=== PATIENT | male | born 1990 | race Hispanic/Latino ===

== ENCOUNTER 2022-05-31 14:30 | Emergency (ER) | payer BC ==
[2022-05-31 16:06] LABS: Hemoglobin 17.8 g/dL (14.0-18.0); Mean Corpuscular HGB CONC 33.3 g/dL (32.0-36.0); Mean Corpuscular Hemoglobin 29.6 pg (27.0-31.0); Mean Platelet Volume 7.2 fL (7.4-10.4); Platelet Count 219 thou/uL (130-400); RBC Distribution Width 12.6 % (11.5-14.5); Red Blood Cell (RBC) Count 6.02 mill/uL (4.70-6.10); White Blood Cell (WBC) Count 9.9 thou/uL (4.8-10.8)
[2022-05-31 16:24] LABS: ALT (SGPT) 46 U/L (8-55); AST (SGOT) 29 U/L (5-34); Albumin 4.6 g/dL (3.5-5.0); Alkaline Phosphatase 96 U/L (40-110); Anion Gap 12 mmol/L (10-20); BUN (Urea Nitrogen) 11 mg/dL (8.9-20.6); Calc. Creatinine Clearance 0 mL/min (70-130); Calcium 9.3 mg/dL (7.8-10.44); Carbon Dioxide 25 mmol/L (22-29); Chloride 104 mmol/L (98-107); Estimated GFR 116; Globulin 3.3 g/dL (2.4-3.5); Glucose 97 mg/dL (70-105); Potassium 3.2 mmol/L (3.5-5.1); Protein, Total 7.9 g/dL (6.0-8.3); Sodium 138 mmol/L (136-145)
== END 2022-05-31 17:19 | disposition home or self-care (01) ==
LOC: ERS 14:30
DX: K56.600 Partial intestinal obstruction, unspecified as to cause (principal); I10 Essential (primary) hypertension; F17.220 Nicotine dependence, chewing tobacco, uncomplicated
CPT/HCPCS: 74177; 80053; 85027; 99284

== ENCOUNTER 2022-06-21 07:27 | Day surgery (SDC) | payer BC ==
[2022-06-20 13:10] VITALS: BMI 39.1
[2022-06-21] MEDS ORDERED: PROPOFOL 200 MG/20 ML VIAL ONE (09:18)
[2022-06-21] MEDS ORDERED: PHENYLEPHRINE-NS 100 MCG/ML 10 ML SYRINGE ONE (09:18)
== END 2022-06-21 11:40 | disposition home or self-care (01) ==
LOC: SDC 07:27
PROVIDERS: ATTEND Internal Medicine Gastroenterology
PROC: 0DJD8ZZ Inspection of Lower Intestinal Tract, Via Natural or Artificial Opening Endoscopic (ICD-10-PCS; principal; 2022-06-21)
DX: K57.30 Diverticulosis of large intestine without perforation or abscess without bleeding (principal); Q43.8 Other specified congenital malformations of intestine; I10 Essential (primary) hypertension; Z87.891 Personal history of nicotine dependence; Z80.0 Family history of malignant neoplasm of digestive organs; Z79.899 Other long term (current) drug therapy
CPT/HCPCS: J2704

== ENCOUNTER 2022-07-15 12:42 | Outpatient (CLI) | payer BC | END 2022-07-15 12:43 | disposition home or self-care (01) | LOC: RAD 12:42 | PROVIDERS: ATTEND Specialist | DX: K56.2 Volvulus (principal) | CPT/HCPCS: 74280 ==

== ENCOUNTER 2022-08-07 15:32 | Outpatient (CLI) | payer BC | END 2022-08-07 15:33 | disposition home or self-care (01) | LOC: RAD 15:32 | PROVIDERS: ATTEND Specialist | DX: K56.2 Volvulus (principal); K63.89 Other specified diseases of intestine; R19.5 Other fecal abnormalities | CPT/HCPCS: 74019 ==

== ENCOUNTER 2025-06-06 16:02 | Outpatient (CLI) | payer OTHER | END 2025-06-06 16:03 | disposition home or self-care (01) | LOC: BICRAD 16:02 | PROVIDERS: ATTEND Family Medicine | DX: M54.2 Cervicalgia (principal) | CPT/HCPCS: 72040 ==